=== PATIENT | female | born 1960 | race Caucasian/White ===

== ENCOUNTER 2017-12-02 09:59 | Emergency (ER) | payer MEDICAID ==
[2017-12-02 10:49] LABS: APPEARANCE,URINE Clear (CLEAR); BILIRUBIN,URINE Negative (NEGATIVE); COLOR,URINE Yellow (YELLOW); GLUCOSE, URINE (UA) >=1000 mg/dL (NEGATIVE); KETONES,URINE Trace mg/dL (NEGATIVE); LEUKOCYTE ESTERASE ,URINE Negative (NEGATIVE); NITRATE,URINE Negative (NEGATIVE); OCCULT BLOOD,URINE Large (NEGATIVE); PH,URINE 5.5 (5.0-8.0); PROTEIN,URINE POS 2+ (NEGATIVE)
[2017-12-02 10:52] LABS: HEMATOCRIT 33.9 % (36-48); MEAN CORPUSCULAR HEMOGLOBIN 33.7 pg (27.0-33.0); MEAN CORPUSCULAR HGB CONC 36.2 g/dL (32.0-36.0); PLATELET COUNT (AUTO) 73 K/uL (130-400); RED BLOOD CELL COUNT(AUTO) 3.64 MIL/uL (4.00-5.50); RED CELL DISTRIBUTION WIDTH 14.5 % (11.0-15.5); WHITE BLOOD COUNT (AUTO) 4.7 K/uL (4.8-10.8)
[2017-12-02 11:03] LABS: ALBUMIN 2.3 g/dL (3.5-5.0); BILIRUBIN,TOTAL 2.2 mg/dL (0.2-1.0); CREATININE 0.8 mg/dL (0.5-1.5); POTASSIUM 4.7 mmol/L (3.5-5.1); TOTAL PROTEIN, SERUM 6.3 g/dL (6.0-8.3)
[2017-12-02 11:08] LABS: BACTERIA,URINE Few /HPF (None Seen); SQUAMOUS EPITHELIAL CELL,UR Few /LPF (0-2); WBC,URINE 0-1 /HPF (0-1)
[2017-12-02 11:09] LABS: YEAST,URINE BUDDING Moderate /HPF (None Seen)
[2017-12-02 11:17] LABS: BASOPHILS % (MANUAL) 1 % (0-2); EOSINOPHILS % (MANUAL) 1 % (1-6); LYMPHOCYTES % (MANUAL) 13 % (22-44); MONOCYTES % (MANUAL) 13 % (2-9); SEGMENTED NEUTROPHILS % 72 % (40-70)
[2017-12-02] MEDS ORDERED: AZITHROMYCIN 250 MG TABLET PO ONE (11:18)
[2017-12-02] MEDS ORDERED: CEFTRIAXONE SODIUM 1 GM ONE (11:18)
[2017-12-02 11:19] LABS: MAN.DIFF COMMENT-IMPRESSION MANUAL DIFFERENTIAL; PLATELET MORPHOLOGY COMMENT DECREASED
[2017-12-02] MEDS ORDERED: INSULIN HUMULIN R 100 UNIT/ML 3ML ONE (11:19)
[2017-12-02 11:30] LABS: INR 1.01 (0.85-1.15); PARTIAL THROMBOPLASTIN TIME 25.2 SEC (26.3-35.5); PROTHROMBIN TIME 10.6 SEC (9.6-11.6)
[2017-12-02] MEDS ORDERED: SODIUM CHLORIDE 0.9% 500ML 500 ML IV ONE (11:39)
== END 2017-12-02 14:42 | disposition home or self-care (01) ==
LOC: EDH 09:59
DX: J18.9 Pneumonia, unspecified organism (principal); E11.65 Type 2 diabetes mellitus with hyperglycemia; K74.69 Other cirrhosis of liver; N93.9 Abnormal uterine and vaginal bleeding, unspecified; E78.5 Hyperlipidemia, unspecified; I10 Essential (primary) hypertension; Z88.0 Allergy status to penicillin; Z88.6 Allergy status to analgesic agent
CPT/HCPCS: 36415; 71045; 80053; 81001; 82948; 85025; 85610; 85730; 87804 ×2; 96361; 96374; 96375; 99285; J0696; J1815; J7040

== ENCOUNTER 2018-01-02 01:25 | Emergency (ER) | payer MEDICAID ==
[2018-01-02 02:55] LABS: BASOPHILS % (AUTO) 0.5 % (0.0-5.0); EOSINOPHILS % (AUTO) 3.1 % (0.0-8.0); HEMATOCRIT 28.7 % (36-48); LYMPHOCYTES % (AUTO) 16.8 % (21.0-51.0); MEAN CORPUSCULAR HEMOGLOBIN 33.4 pg (27.0-33.0); MEAN CORPUSCULAR HGB CONC 36.3 g/dL (32.0-36.0); MEAN CORPUSCULAR VOLUME 91.9 fL (79-99); MONOCYTES % (AUTO) 13.8 % (3.0-13.0); NEUTROPHILS % (AUTO) 65.8 % (40.0-77.0); PLATELET COUNT (AUTO) 73 K/uL (130-400); RED BLOOD CELL COUNT(AUTO) 3.12 MIL/uL (4.00-5.50); RED CELL DISTRIBUTION WIDTH 15.3 % (11.0-15.5)
[2018-01-02 03:05] LABS: BILIRUBIN,TOTAL 1.8 mg/dL (0.2-1.0); CREATININE 0.6 mg/dL (0.5-1.5); POTASSIUM 3.6 mmol/L (3.5-5.1); TOTAL PROTEIN, SERUM 5.8 g/dL (6.0-8.3)
[2018-01-02 03:25] LABS: BAND NEUTROPHILS % (MANUAL) 10 % (0-2); EOSINOPHILS % (MANUAL) 2 % (1-6); LYMPHOCYTES % (MANUAL) 16 % (22-44); MAN.DIFF COMMENT-IMPRESSION MANUAL DIFFERENTIAL; MONOCYTES % (MANUAL) 2 % (2-9); PLATELET MORPHOLOGY COMMENT DECREASED; SEGMENTED NEUTROPHILS % 70 % (40-70)
[2018-01-02 03:29] LABS: INR 1.05 (0.85-1.15); PARTIAL THROMBOPLASTIN TIME 28.2 SEC (26.3-35.5)
[2018-01-02] MEDS ORDERED: INSULIN HUMULIN R 100 UNIT/ML 3ML ONE (03:51)
== END 2018-01-02 05:30 | disposition home or self-care (01) ==
LOC: EDH 01:25
DX: N93.9 Abnormal uterine and vaginal bleeding, unspecified (principal); E11.65 Type 2 diabetes mellitus with hyperglycemia; D61.818 Other pancytopenia; K74.69 Other cirrhosis of liver; E78.5 Hyperlipidemia, unspecified; I10 Essential (primary) hypertension; Z88.6 Allergy status to analgesic agent; Z88.0 Allergy status to penicillin
CPT/HCPCS: 36415; 80053; 82948; 85007; 85025; 85610; 85730; 96374; 99284; J1815

== ENCOUNTER 2018-01-19 11:27 | Emergency (ER) | payer MEDICAID ==
[2018-01-19 12:22] LABS: BASOPHILS % (AUTO) 0.6 % (0.0-5.0); EOSINOPHILS % (AUTO) 1.5 % (0.0-8.0); HEMATOCRIT 30.8 % (36-48); LYMPHOCYTES % (AUTO) 14.7 % (21.0-51.0); MEAN CORPUSCULAR HEMOGLOBIN 32.4 pg (27.0-33.0); MEAN CORPUSCULAR HGB CONC 35.3 g/dL (32.0-36.0); MONOCYTES % (AUTO) 26.6 % (3.0-13.0); NEUTROPHILS % (AUTO) 56.6 % (40.0-77.0); NUCLEATED RED BLOOD CELLS 0.1 % (0.0-0.19); PLATELET COUNT (AUTO) 60 K/uL (130-400); RED BLOOD CELL COUNT(AUTO) 3.35 MIL/uL (4.00-5.50); RED CELL DISTRIBUTION WIDTH 14.5 % (11.0-15.5); WHITE BLOOD COUNT (AUTO) 1.5 K/uL (4.8-10.8)
[2018-01-19 12:31] LABS: ALBUMIN 2.3 g/dL (3.5-5.0); BILIRUBIN,TOTAL 1.5 mg/dL (0.2-1.0); CREATININE 0.7 mg/dL (0.5-1.5); POTASSIUM 4.3 mmol/L (3.5-5.1); TOTAL PROTEIN, SERUM 6.5 g/dL (6.0-8.3)
[2018-01-19] MEDS ORDERED: IPRATROPIUM/ALBUTEROL SULFATE 3 ML SOLUTION IH ONE (12:32)
[2018-01-19 14:17] LABS: APPEARANCE,URINE Clear (CLEAR); BILIRUBIN,URINE Negative (NEGATIVE); COLOR,URINE Yellow (YELLOW); GLUCOSE, URINE (UA) >=1000 mg/dL (NEGATIVE); KETONES,URINE Negative (NEGATIVE); LEUKOCYTE ESTERASE ,URINE Negative (NEGATIVE); NITRATE,URINE Negative (NEGATIVE); OCCULT BLOOD,URINE Large (NEGATIVE); PH,URINE 6.5 (5.0-8.0); PROTEIN,URINE POS 1+ (NEGATIVE)
[2018-01-19 14:33] LABS: BACTERIA,URINE Rare /HPF (None Seen); WBC,URINE 0-1 /HPF (0-1)
[2018-01-19] MEDS ORDERED: INSULIN HUMULIN R 100 UNIT/ML 3ML ONE (14:42)
[2018-01-19] MEDS ORDERED: SODIUM CHLORIDE 0.9% 500ML 500 ML IV ONE (14:43)
[2018-01-19] MEDS ORDERED: OSELTAMIVIR PHOSPHATE 75 MG CAP ONE (15:51)
== END 2018-01-19 16:45 | disposition home or self-care (01) ==
LOC: EDH 11:27
DX: E11.65 Type 2 diabetes mellitus with hyperglycemia (principal); J10.1 Influenza due to other identified influenza virus with other respiratory manifestations; D72.819 Decreased white blood cell count, unspecified; D69.6 Thrombocytopenia, unspecified; K74.69 Other cirrhosis of liver; E78.5 Hyperlipidemia, unspecified; I10 Essential (primary) hypertension; Z88.0 Allergy status to penicillin; Z88.6 Allergy status to analgesic agent; Z87.891 Personal history of nicotine dependence
CPT/HCPCS: 36415; 71046; 80053; 81001; 82140; 82948; 83605 ×2; 84484; 85025; 85060; 87804 ×2; 88313; 93005; 94640; 96374; 99285; J1815; J7040

== ENCOUNTER → 2018-05-02 | Outpatient (CLI) | payer MEDICAID | END | disposition home or self-care (01) | LOC: RAH 07:37 | PROVIDERS: ATTEND Internal Medicine Gastroenterology | DX: K74.60 Unspecified cirrhosis of liver (principal); R18.8 Other ascites; R16.1 Splenomegaly, not elsewhere classified; N28.1 Cyst of kidney, acquired; I10 Essential (primary) hypertension; E11.9 Type 2 diabetes mellitus without complications; E78.5 Hyperlipidemia, unspecified | CPT/HCPCS: 76700; 93975 ==

== ENCOUNTER 2018-07-26 17:17 | Inpatient (IN) | payer MEDICAID ==
[~2018-07-26] VITALS: Ht 154.9 cm; Wt 80.5 kg
[~2018-07-26 17:17] MED LIST: INSLAN SQ
[2018-07-26 18:54] LABS: BASOPHILS % (AUTO) 0.5 % (0.0-5.0); EOSINOPHILS % (AUTO) 2.7 % (0.0-8.0); LYMPHOCYTES % (AUTO) 13.8 % (21.0-51.0); MEAN CORPUSCULAR HEMOGLOBIN 31.9 pg (27.0-33.0); MONOCYTES % (AUTO) 12.4 % (3.0-13.0); NEUTROPHILS % (AUTO) 70.6 % (40.0-77.0); PLATELET COUNT (AUTO) 65 K/uL (130-400); RED BLOOD CELL COUNT(AUTO) 2.75 MIL/uL (4.00-5.50); WHITE BLOOD COUNT (AUTO) 2.5 K/uL (4.8-10.8)
[2018-07-26 19:02] LABS: APPEARANCE,URINE Clear (CLEAR); BILIRUBIN,URINE Negative (NEGATIVE); COLOR,URINE Yellow (YELLOW); GLUCOSE, URINE (UA) >=1000 mg/dL (NEGATIVE); KETONES,URINE Negative (NEGATIVE); LEUKOCYTE ESTERASE ,URINE Small (NEGATIVE); NITRATE,URINE Positive (NEGATIVE); OCCULT BLOOD,URINE Large (NEGATIVE); PH,URINE 6.5 (5.0-8.0); PROTEIN,URINE 300 (NEGATIVE)
[2018-07-26 19:09] LABS: INR 1.09 (0.85-1.15); PARTIAL THROMBOPLASTIN TIME 29.9 SEC (26.3-35.5); PROTHROMBIN TIME 11.4 SEC (9.6-11.6)
[2018-07-26 19:22] LABS: CREATINE KINASE MB 1.1 ng/mL (0.5-3.6)
[2018-07-26 19:29] LABS: BACTERIA,URINE Rare /HPF (None Seen); SQUAMOUS EPITHELIAL CELL,UR Few /HPF (0-2)
[2018-07-26 20:10] LABS: BAND NEUTROPHILS % (MANUAL) 5 % (0-2); EOSINOPHILS % (MANUAL) 1 % (1-6); LYMPHOCYTES % (MANUAL) 19 % (22-44); MAN.DIFF COMMENT-IMPRESSION MANUAL DIFFERENTIAL; MONOCYTES % (MANUAL) 4 % (2-9); REACTIVE LYMPHOCYTES 3 % (0-0); SEGMENTED NEUTROPHILS % 68 % (40-70)
[2018-07-26 20:11] LABS: PLATELET MORPHOLOGY COMMENT DECREASED
[2018-07-26 20:13] LABS: BILIRUBIN,TOTAL 1.6 mg/dL (0.2-1.0); POTASSIUM 3.8 mmol/L (3.5-5.1)
[2018-07-26] MEDS ORDERED: SODIUM CHLORIDE 0.9% 500ML 500 ML IV ONE (20:55)
[2018-07-26] MEDS ORDERED: INSULIN HUMULIN R 100 UNIT/ML 3ML ONE (20:55)
[2018-07-26] MEDS ORDERED: LEVOFLOXACIN 500 MG/D5W 100 ML 100 ML ONE (21:18)
[2018-07-26] MEDS ORDERED: ONDANSETRON HCL 4 MG/2 ML VIAL ONE (22:00)
[2018-07-26] MEDS ORDERED: HYDROMORPHONE HCL 0.5 MG/0.5 ML ML ONE (22:00)
[2018-07-26] MEDS ORDERED: DEXTROSE 50%-WATER 50 ML DISP.SYRIN IV PRN (22:15)
[2018-07-26] MEDS ORDERED: ONDANSETRON HCL 4 MG/2 ML VIAL IVP PRN (22:15)
[2018-07-26] MEDS ORDERED: GLUCAGON 1MG KIT 1 MG ML IM PRN (22:15)
[2018-07-26] MEDS: SODIUM CHLORIDE 0.9% 1000ML 1,000 ML IV SCH (22:15)
[2018-07-26] MEDS ORDERED: CLINDAMYCIN 600 MG/D5% WATER 50 ML IV ONE (22:52)
[2018-07-26 23:20] VITALS: BP 157/73
[2018-07-27] VITALS (15 sets, daily range): BP systolic 131–177; BP diastolic 57–77
[2018-07-27 05:31] LABS: HEMATOCRIT 23.6 % (36-48); MEAN CORPUSCULAR HEMOGLOBIN 31.4 pg (27.0-33.0); MEAN CORPUSCULAR HGB CONC 34.8 g/dL (32.0-36.0); MEAN CORPUSCULAR VOLUME 90.3 fL (79-99); PLATELET COUNT (AUTO) 53 K/uL (130-400); RED BLOOD CELL COUNT(AUTO) 2.62 MIL/uL (4.00-5.50); RED CELL DISTRIBUTION WIDTH 14.9 % (11.0-15.5); WHITE BLOOD COUNT (AUTO) 2.7 K/uL (4.8-10.8)
[2018-07-27 05:43] LABS: ALBUMIN 1.7 g/dL (3.5-5.0); BILIRUBIN,TOTAL 1.2 mg/dL (0.2-1.0); CREATININE 0.8 mg/dL (0.5-1.5); MAGNESIUM 1.6 mg/dL (1.80-2.40); PHOSPHORUS 3.5 mg/dL (2.5-4.9); POTASSIUM 4.3 mmol/L (3.5-5.1); TOTAL PROTEIN, SERUM 5.2 g/dL (6.0-8.3)
[2018-07-27] MEDS: INSULIN R PO SS1 SQ SCH ×4 (05:55→21:05)
[2018-07-27] MEDS: SODIUM CHLORIDE 0.9% 1000ML 1,000 ML IV SCH ×2 (08:15→18:15)
[2018-07-27] MEDS ORDERED: LIDOCAINE HCL MPF 1% 5ML VIAL ONE (08:32)
[2018-07-27] MEDS: PANTOPRAZOLE SODIUM 40 MG TABLET.DR PO SCH (09:20)
[2018-07-27] MEDS: LEVOFLOXACIN 500 MG/D5W 100 ML 100 ML IV SCH (09:20)
[2018-07-27] MEDS: CLINDAMYCIN 600 MG/D5% WATER 50 ML IV SCH ×2 (09:20→21:05)
[2018-07-27 13:40] LABS: APPEARANCE BODY FLUID SLIGHTLY CLOUDY (CLEAR); COLOR,BODY FLUID LT YELLOW (LT YELLOW); SPECIMENTYPE,BODY FLUID ASCITES; TOTAL VOLUME,BODY FLUID 2000 mL
[2018-07-27 14:04] LABS: BODY FLUID WBC 108 /cu. mm.
[2018-07-27 14:05] LABS: BODY FLUID RBC 175 /cu. mm.
[2018-07-27 14:41] LABS: BF BLAST 2 %; BF LYMPHOCYTE 11 %; BF MESOTHELIAL 6 %; BF MONOCYTE 24 %; BF OTHER CELLS 36
[2018-07-27] MEDS: HYDROMORPHONE HCL 0.5 MG/0.5 ML ML IVP PRN (15:52)
[2018-07-28] VITALS (18 sets, daily range): BP systolic 112–174; BP diastolic 58–92
[2018-07-28] MEDS: SODIUM CHLORIDE 0.9% 1000ML 1,000 ML IV SCH ×3 (03:24→23:31)
[2018-07-28 04:48] LABS: HEMATOCRIT 24.6 % (36-48); MEAN CORPUSCULAR HEMOGLOBIN 32.5 pg (27.0-33.0); MEAN CORPUSCULAR HGB CONC 35.8 g/dL (32.0-36.0); MEAN CORPUSCULAR VOLUME 90.6 fL (79-99); NUCLEATED RED BLOOD CELLS 0.1 % (0.0-0.19); PLATELET COUNT (AUTO) 61 K/uL (130-400); RED BLOOD CELL COUNT(AUTO) 2.71 MIL/uL (4.00-5.50); RED CELL DISTRIBUTION WIDTH 15.1 % (11.0-15.5); WHITE BLOOD COUNT (AUTO) 2.1 K/uL (4.8-10.8)
[2018-07-28 05:08] LABS: ALBUMIN 1.7 g/dL (3.5-5.0); CREATININE 0.9 mg/dL (0.5-1.5); MAGNESIUM 1.5 mg/dL (1.80-2.40); PHOSPHORUS 3.8 mg/dL (2.5-4.9); POTASSIUM 4.5 mmol/L (3.5-5.1); TOTAL PROTEIN, SERUM 5.4 g/dL (6.0-8.3)
[2018-07-28 05:42] LABS: BAND NEUTROPHILS % (MANUAL) 2 % (0-2); BASOPHILS % (MANUAL) 1 % (0-2); EOSINOPHILS % (MANUAL) 6 % (1-6); LYMPHOCYTES % (MANUAL) 22 % (22-44); MAN.DIFF COMMENT-IMPRESSION MANUAL DIFFERENTIAL; MONOCYTES % (MANUAL) 8 % (2-9); SEGMENTED NEUTROPHILS % 61 % (40-70)
[2018-07-28 05:43] LABS: PLATELET MORPHOLOGY COMMENT DECREASED
[2018-07-28] MEDS: INSULIN R PO SS1 SQ SCH ×4 (06:06→20:26)
[2018-07-28] MEDS ORDERED: MAGNESIUM 4GM PREMIX 100ML 100 ML IV SCH (07:15)
[2018-07-28] MEDS ORDERED: PROPOFOL 10 MG/ML 20ML VIAL IV ONE (07:26)
[2018-07-28] MEDS: CLINDAMYCIN 600 MG/D5% WATER 50 ML IV SCH ×2 (10:10→20:25)
[2018-07-28] MEDS: PANTOPRAZOLE SODIUM 40 MG TABLET.DR PO SCH (10:10)
[2018-07-28] MEDS: LEVOFLOXACIN 500 MG/D5W 100 ML 100 ML IV SCH (10:10)
[2018-07-28] MEDS ORDERED: HYDROMORPHONE 1 MG/1 ML AMP ONE (18:48)
[2018-07-28] MEDS: HYDROMORPHONE HCL 0.5 MG/0.5 ML ML IVP PRN (18:53)
[2018-07-29 02:53] VITALS: BP 142/76
[2018-07-29 05:34] LABS: HEMATOCRIT 23.1 % (36-48); MEAN CORPUSCULAR HEMOGLOBIN 31.8 pg (27.0-33.0); MEAN CORPUSCULAR HGB CONC 34.9 g/dL (32.0-36.0); MEAN CORPUSCULAR VOLUME 91.1 fL (79-99); NUCLEATED RED BLOOD CELLS 0.1 % (0.0-0.19); PLATELET COUNT (AUTO) 57 K/uL (130-400); RED BLOOD CELL COUNT(AUTO) 2.53 MIL/uL (4.00-5.50); RED CELL DISTRIBUTION WIDTH 14.8 % (11.0-15.5); WHITE BLOOD COUNT (AUTO) 2.7 K/uL (4.8-10.8)
[2018-07-29 05:47] LABS: ALBUMIN 1.6 g/dL (3.5-5.0); BILIRUBIN,TOTAL 0.9 mg/dL (0.2-1.0); CREATININE 0.9 mg/dL (0.5-1.5); MAGNESIUM 2.2 mg/dL (1.80-2.40); PHOSPHORUS 3.6 mg/dL (2.5-4.9); POTASSIUM 4.2 mmol/L (3.5-5.1); TOTAL PROTEIN, SERUM 5.2 g/dL (6.0-8.3)
[2018-07-29] MEDS: INSULIN R PO SS1 SQ SCH (06:12)
[2018-07-29 07:41] VITALS: BP 136/60
== END 2018-07-29 11:05 | disposition home or self-care (01) ==
LOC: EDH 17:17 → EDHIP 17:18 → 3AH 22:57
PROVIDERS: ADMIT Family Medicine; ATTEND Family Medicine
PROC: 0W9G3ZZ Drainage of Peritoneal Cavity, Percutaneous Approach (ICD-10-PCS; 2018-07-27)
PROC: 0DJ08ZZ Inspection of Upper Intestinal Tract, Via Natural or Artificial Opening Endoscopic (ICD-10-PCS; principal; 2018-07-28)
DX: K74.60 Unspecified cirrhosis of liver (principal); K85.90 Acute pancreatitis without necrosis or infection, unspecified; D69.6 Thrombocytopenia, unspecified; R18.8 Other ascites; E11.9 Type 2 diabetes mellitus without complications; D64.9 Anemia, unspecified; E78.5 Hyperlipidemia, unspecified; I10 Essential (primary) hypertension; K29.50 Unspecified chronic gastritis without bleeding; Z86.14 Personal history of Methicillin resistant Staphylococcus aureus infection; Z79.899 Other long term (current) drug therapy; Z91.11 Patient's noncompliance with dietary regimen; Z91.14 Patient's other noncompliance with medication regimen; Z88.0 Allergy status to penicillin; Z88.8 Allergy status to other drugs, medicaments and biological substances
CPT/HCPCS: 36415; 43235; 49083; 74176; 80053; 81001; 82150; 82550; 82553; 82948; 83690; 83735; 83880; 84100; 84484; 85025; 85027; 85610; 85730; 87040; 87071; 87088; 87186; 87205; 88108; 88305; 89051; 93005; C9113; J1170; J1815; J1956; J2405; J2704; J3475; J3490; J7040

== ENCOUNTER 2018-08-20 16:31 | Observation (INO) | payer MEDICAID ==
[~2018-08-20] VITALS: Ht 154.9 cm; Wt 83.0 kg
[2018-08-20 17:00] LABS: BASOPHILS % (AUTO) 0.3 % (0.0-5.0); EOSINOPHILS % (AUTO) 3.1 % (0.0-8.0); HEMATOCRIT 22.8 % (36-48); LYMPHOCYTES % (AUTO) 15.5 % (21.0-51.0); MEAN CORPUSCULAR HEMOGLOBIN 31.9 pg (27.0-33.0); MEAN CORPUSCULAR HGB CONC 35.2 g/dL (32.0-36.0); MEAN CORPUSCULAR VOLUME 90.6 fL (79-99); MONOCYTES % (AUTO) 13.4 % (3.0-13.0); NEUTROPHILS % (AUTO) 67.7 % (40.0-77.0); NUCLEATED RED BLOOD CELLS 0.1 % (0.0-0.19); PLATELET COUNT (AUTO) 67 K/uL (130-400); RED BLOOD CELL COUNT(AUTO) 2.52 MIL/uL (4.00-5.50); RED CELL DISTRIBUTION WIDTH 16.2 % (11.0-15.5); WHITE BLOOD COUNT (AUTO) 2.1 K/uL (4.8-10.8)
[2018-08-20 17:13] LABS: CREATININE 0.9 mg/dL (0.5-1.5); POTASSIUM 3.9 mmol/L (3.5-5.1)
[2018-08-20 17:15] LABS: INR 1.07 (0.85-1.15); PARTIAL THROMBOPLASTIN TIME 25.4 SEC (26.3-35.5); PROTHROMBIN TIME 11.2 SEC (9.6-11.6)
[2018-08-20 17:18] LABS: ALBUMIN 1.7 g/dL (3.5-5.0); BILIRUBIN,TOTAL 0.8 mg/dL (0.2-1.0); TOTAL PROTEIN, SERUM 5.4 g/dL (6.0-8.3)
[2018-08-20 18:03] LABS: EOSINOPHILS % (MANUAL) 3 % (1-6); LYMPHOCYTES % (MANUAL) 20 % (22-44); MAN.DIFF COMMENT-IMPRESSION MANUAL DIFFERENTIAL; MONOCYTES % (MANUAL) 6 % (2-9); REACTIVE LYMPHOCYTES 2 % (0-0); SEGMENTED NEUTROPHILS % 69 % (40-70)
[2018-08-20 18:04] LABS: PLATELET MORPHOLOGY COMMENT DECREASED
[2018-08-20] MEDS ORDERED: INSULIN HUMULIN R 100 UNIT/ML 3ML ONE (18:25)
[2018-08-20] MEDS ORDERED: HYDROMORPHONE 1 MG/1 ML AMP ONE (19:19)
[2018-08-20] MEDS ORDERED: IOHEXOL-350 75 ML VIAL IV ONE (23:01)
[2018-08-21 01:50] VITALS: BP 145/73
[2018-08-21] MEDS ORDERED: HYDROMORPHONE 1 MG/1 ML AMP ONE ×3 (03:04→23:01)
[2018-08-21 04:00] VITALS: BP 137/67
[2018-08-21] MEDS: INSULIN HUMULIN R 100 UNIT/ML 3ML SQ SCH ×4 (07:30→21:29)
[2018-08-21 08:00] VITALS: BP 150/81
[2018-08-21] MEDS: INSULIN GLARGINE 100 UNITS/ML 10 ML VIAL SQ SCH ×2 (09:50→21:28)
[2018-08-21 11:00] VITALS: BP 171/76
[2018-08-21] MEDS ORDERED: ONDANSETRON HCL MDV 20ML 2 MG/ML VIAL IVP PRN (13:00)
[2018-08-21] MEDS: HYDROMORPHONE HCL 0.5 MG/0.5 ML ML IVP PRN (15:59)
[2018-08-21 16:00] VITALS: BP 169/76
[2018-08-21 20:00] VITALS: BP 145/63
[2018-08-21] MEDS ORDERED: LEVOFLOXACIN 750 MG TABLET PO SCH (21:00)
[2018-08-21] MEDS: DOXYCYCLINE HYCLATE 100 MG TABLET PO SCH (21:23)
[2018-08-21] MEDS: IPRATROPIUM 0.5 MG/2.5 ML INH IH SCH (23:09)
[2018-08-22] VITALS: BP 164/77
[2018-08-22 04:00] VITALS: BP 128/55
[2018-08-22 04:16] LABS: HEMATOCRIT 25.3 % (36-48); MEAN CORPUSCULAR HGB CONC 35.2 g/dL (32.0-36.0); PLATELET COUNT (AUTO) 73 K/uL (130-400); RED BLOOD CELL COUNT(AUTO) 2.78 MIL/uL (4.00-5.50); RED CELL DISTRIBUTION WIDTH 16.2 % (11.0-15.5); WHITE BLOOD COUNT (AUTO) 2.7 K/uL (4.8-10.8)
[2018-08-22 04:29] LABS: INR 1.05 (0.85-1.15); PARTIAL THROMBOPLASTIN TIME 28.4 SEC (26.3-35.5)
[2018-08-22 04:31] LABS: ALBUMIN 1.5 g/dL (3.5-5.0); BILIRUBIN,TOTAL 0.9 mg/dL (0.2-1.0); CREATININE 0.7 mg/dL (0.5-1.5); MAGNESIUM 1.6 mg/dL (1.80-2.40); PHOSPHORUS 3.5 mg/dL (2.5-4.9); POTASSIUM 3.9 mmol/L (3.5-5.1); TOTAL PROTEIN, SERUM 5.2 g/dL (6.0-8.3)
[2018-08-22] MEDS: INSULIN HUMULIN R 100 UNIT/ML 3ML SQ SCH ×3 (06:17→15:42)
[2018-08-22] MEDS ORDERED: HYDROMORPHONE 1 MG/1 ML AMP ONE ×2 (06:27→15:27)
[2018-08-22] MEDS ORDERED: MAGNESIUM 4GM PREMIX 100ML 100 ML IV SCH (06:30)
[2018-08-22] MEDS: IPRATROPIUM 0.5 MG/2.5 ML INH IH SCH ×2 (06:32→10:54)
[2018-08-22] MEDS: INSULIN GLARGINE 100 UNITS/ML 10 ML VIAL SQ SCH (06:33)
[2018-08-22 08:00] VITALS: BP 123/63
[2018-08-22] MEDS: DOXYCYCLINE HYCLATE 100 MG TABLET PO SCH (10:21)
[2018-08-22 11:00] VITALS: BP 149/76
[2018-08-22] MEDS: HYDROMORPHONE HCL 0.5 MG/0.5 ML ML IVP PRN (15:36)
[2018-08-22 16:00] VITALS: BP 162/73
== END 2018-08-22 18:15 | disposition home or self-care (01) ==
LOC: EDH 16:31 → EDHIP 16:32 → 4CH 08-21 01:10
PROVIDERS: ADMIT Family Medicine; ATTEND Family Medicine
DX: D61.818 Other pancytopenia (principal); J11.1 Influenza due to unidentified influenza virus with other respiratory manifestations; R91.1 Solitary pulmonary nodule; E11.65 Type 2 diabetes mellitus with hyperglycemia; K74.60 Unspecified cirrhosis of liver; R18.8 Other ascites; I10 Essential (primary) hypertension; D68.9 Coagulation defect, unspecified; E78.5 Hyperlipidemia, unspecified; E83.52 Hypercalcemia; Z86.14 Personal history of Methicillin resistant Staphylococcus aureus infection; Z87.891 Personal history of nicotine dependence; Z91.11 Patient's noncompliance with dietary regimen; Z91.14 Patient's other noncompliance with medication regimen; Z88.0 Allergy status to penicillin
CPT/HCPCS: 36415 ×2; 71250; 71275; 74176; 76705; 80053 ×2; 82948 ×8; 83735; 84100; 85025; 85027; 85378; 85610 ×2; 85730 ×2; 93005; 93970; 94640 ×3; 94664; 96365; 96366; 96372 ×2; 96375; 96376; 99291; G0378 ×50; J1170 ×6; J1815 ×5; J3475; Q9967

== ENCOUNTER 2018-09-10 18:09 | Emergency (ER) | payer MEDICAID ==
[2018-09-10 18:40] LABS: BASOPHILS % (AUTO) 0.2 % (0.0-5.0); EOSINOPHILS % (AUTO) 0.6 % (0.0-8.0); HEMATOCRIT 24.9 % (36-48); LYMPHOCYTES % (AUTO) 4.6 % (21.0-51.0); MEAN CORPUSCULAR HGB CONC 34.6 g/dL (32.0-36.0); MEAN CORPUSCULAR VOLUME 89.6 fL (79-99); MONOCYTES % (AUTO) 9.7 % (3.0-13.0); NEUTROPHILS % (AUTO) 84.9 % (40.0-77.0); PLATELET COUNT (AUTO) 54 K/uL (130-400); RED BLOOD CELL COUNT(AUTO) 2.78 MIL/uL (4.00-5.50); RED CELL DISTRIBUTION WIDTH 15.6 % (11.0-15.5)
[2018-09-10 18:56] LABS: CREATININE 0.9 mg/dL (0.5-1.5); POTASSIUM 3.1 mmol/L (3.5-5.1)
[2018-09-10 18:59] LABS: INR 1.08 (0.85-1.15); PARTIAL THROMBOPLASTIN TIME 30.7 SEC (26.3-35.5); PROTHROMBIN TIME 11.3 SEC (9.6-11.6)
[2018-09-10 19:21] LABS: PLATELET MORPHOLOGY COMMENT DECREASED
[2018-09-10 19:26] LABS: BILIRUBIN,TOTAL 2.7 mg/dL (0.2-1.0); TOTAL PROTEIN, SERUM 6.1 g/dL (6.0-8.3); TROPONIN I 0.05 ng/mL (0.00-0.06)
[2018-09-10 20:50] LABS: APPEARANCE,URINE Clear (CLEAR); BILIRUBIN,URINE Negative (NEGATIVE); COLOR,URINE Yellow (YELLOW); GLUCOSE, URINE (UA) >=1000 mg/dL (NEGATIVE); KETONES,URINE Trace mg/dL (NEGATIVE); LEUKOCYTE ESTERASE ,URINE Negative (NEGATIVE); NITRATE,URINE Negative (NEGATIVE); OCCULT BLOOD,URINE Large (NEGATIVE); PROTEIN,URINE 300 (NEGATIVE)
[2018-09-10] MEDS ORDERED: LEVOFLOXACIN 500 MG TABLET ONE (20:59)
[2018-09-10] MEDS ORDERED: CEFTRIAXONE SODIUM 1 GM ONE (20:59)
[2018-09-10] MEDS ORDERED: SODIUM CHLORIDE 0.9% 50 ML IV ONE (21:00)
[2018-09-10 21:06] LABS: BACTERIA,URINE Few /HPF (None Seen); SQUAMOUS EPITHELIAL CELL,UR Few /HPF (0-2); WBC,URINE 0-1 /HPF (0-1)
[2018-09-10 21:07] LABS: HYALINE CASTS, URINE 0-1 /LPF (0-1 /LPF)
== END 2018-09-10 21:53 | disposition home or self-care (01) ==
LOC: EDH 18:09
DX: K70.30 Alcoholic cirrhosis of liver without ascites (principal); R91.8 Other nonspecific abnormal finding of lung field; E11.9 Type 2 diabetes mellitus without complications; E78.5 Hyperlipidemia, unspecified; Z88.0 Allergy status to penicillin; Z88.6 Allergy status to analgesic agent; Z87.891 Personal history of nicotine dependence
CPT/HCPCS: 36415; 71045; 80053; 81001; 82550; 83605 ×2; 83874; 84484; 85025; 85610; 85730; 87040 ×2; 87088; 87804 ×2; 93005; 96374; 99285; J0696

== ENCOUNTER 2018-09-26 16:18 | Emergency (ER) | payer MEDICAID ==
[2018-09-26 17:14] LABS: BASOPHILS % (AUTO) 0.5 % (0.0-5.0); EOSINOPHILS % (AUTO) 2.6 % (0.0-8.0); LYMPHOCYTES % (AUTO) 16.8 % (21.0-51.0); MEAN CORPUSCULAR HEMOGLOBIN 31.1 pg (27.0-33.0); MEAN CORPUSCULAR HGB CONC 34.6 g/dL (32.0-36.0); MEAN CORPUSCULAR VOLUME 89.8 fL (79-99); MONOCYTES % (AUTO) 16.4 % (3.0-13.0); NEUTROPHILS % (AUTO) 63.7 % (40.0-77.0); PLATELET COUNT (AUTO) 71 K/uL (130-400); RED BLOOD CELL COUNT(AUTO) 2.67 MIL/uL (4.00-5.50); RED CELL DISTRIBUTION WIDTH 15.7 % (11.0-15.5)
[2018-09-26 17:26] LABS: CREATININE 0.9 mg/dL (0.5-1.5)
[2018-09-26 17:29] LABS: INR 1.05 (0.85-1.15); PARTIAL THROMBOPLASTIN TIME 29.7 SEC (26.3-35.5)
[2018-09-26 17:31] LABS: ALBUMIN 1.9 g/dL (3.5-5.0); BILIRUBIN,TOTAL 1.1 mg/dL (0.2-1.0)
[2018-09-26 18:06] LABS: BAND NEUTROPHILS % (MANUAL) 1 % (0-2); BASOPHILS % (MANUAL) 1 % (0-2); EOSINOPHILS % (MANUAL) 6 % (1-6); LYMPHOCYTES % (MANUAL) 10 % (22-44); MAN.DIFF COMMENT-IMPRESSION MANUAL DIFFERENTIAL; MONOCYTES % (MANUAL) 12 % (2-9); SEGMENTED NEUTROPHILS % 70 % (40-70)
== END 2018-09-26 19:07 | disposition home or self-care (01) ==
LOC: EDH 16:18
DX: R18.8 Other ascites (principal); E78.5 Hyperlipidemia, unspecified; E11.9 Type 2 diabetes mellitus without complications; K74.60 Unspecified cirrhosis of liver; Z90.49 Acquired absence of other specified parts of digestive tract; Z90.710 Acquired absence of both cervix and uterus; Z98.890 Other specified postprocedural states; Z87.891 Personal history of nicotine dependence; Z88.0 Allergy status to penicillin; Z88.6 Allergy status to analgesic agent
CPT/HCPCS: 36415; 80053; 82140; 85025; 85610; 85730

== ENCOUNTER → 2018-09-28 | Outpatient (CLI) | payer MEDICAID ==
[~2018-09-28] MED LIST changes: +ALBUMIN (HUMAN) 25% 200 ML IV SCH; +LIDOCAINE HCL 1% 20 ML VIAL ONE
[2018-09-28 11:01] LABS: INR 1.01 (0.85-1.15); PROTHROMBIN TIME 10.6 SEC (9.6-11.6)
[2018-09-28 11:55] LABS: PARTIAL THROMBOPLASTIN TIME 20.5 SEC (26.3-35.5)
[2018-09-28 17:38] LABS: APPEARANCE BODY FLUID SLIGHTLY CLOUDY (CLEAR); COLOR,BODY FLUID LT YELLOW (LT YELLOW); SPECIMENTYPE,BODY FLUID ASCITES; TOTAL VOLUME,BODY FLUID 5000 mL
[2018-09-28 17:39] LABS: BODY FLUID RBC 69 /cu. mm.; BODY FLUID WBC 666 /cu. mm.
[2018-09-28 17:45] LABS: BF LYMPHOCYTE 4 %; BF MESOTHELIAL 87 %; BF MONOCYTE 2 %; BF OTHER CELLS 5
== END | disposition home or self-care (01) ==
LOC: RAH 10:17
PROVIDERS: ATTEND Family Medicine
DX: R18.8 Other ascites (principal)
CPT/HCPCS: 36415; 49083; 85610; 85730; 87071; 87205; 89051; 96365; A4215; P9046

== ENCOUNTER 2018-10-29 14:54 | Emergency (ER) | payer MEDICAID ==
[~2018-10-29 14:54] MED LIST changes: -ALBUMIN (HUMAN) 25% 200 ML IV SCH; -LIDOCAINE HCL 1% 20 ML VIAL ONE
[2018-10-29] MEDS ORDERED: HYDRALAZINE HCL 20 MG/ML VIAL ONE (15:35)
[2018-10-29 15:38] LABS: BASOPHILS % (AUTO) 0.4 % (0.0-5.0); EOSINOPHILS % (AUTO) 2.4 % (0.0-8.0); LYMPHOCYTES % (AUTO) 12.8 % (21.0-51.0); MEAN CORPUSCULAR HEMOGLOBIN 29.7 pg (27.0-33.0); MEAN CORPUSCULAR HGB CONC 32.8 g/dL (32.0-36.0); MEAN CORPUSCULAR VOLUME 90.5 fL (79-99); MONOCYTES % (AUTO) 14.3 % (3.0-13.0); NEUTROPHILS % (AUTO) 70.1 % (40.0-77.0); NUCLEATED RED BLOOD CELLS 0.1 % (0.0-0.19); PLATELET COUNT (AUTO) 64 K/uL (130-400); RED BLOOD CELL COUNT(AUTO) 2.87 MIL/uL (4.00-5.50); RED CELL DISTRIBUTION WIDTH 15.6 % (11.0-15.5); WHITE BLOOD COUNT (AUTO) 2.9 K/uL (4.8-10.8)
[2018-10-29 15:58] LABS: CREATININE 1.1 mg/dL (0.5-1.5); POTASSIUM 4.6 mmol/L (3.5-5.1)
[2018-10-29 16:00] LABS: INR 1.05 (0.85-1.15)
[2018-10-29 16:03] LABS: BILIRUBIN,TOTAL 1.4 mg/dL (0.2-1.0); TOTAL PROTEIN, SERUM 6.1 g/dL (6.0-8.3)
[2018-10-29 16:10] LABS: BAND NEUTROPHILS % (MANUAL) 1 % (0-2); BASOPHILS % (MANUAL) 1 % (0-2); EOSINOPHILS % (MANUAL) 2 % (1-6); LYMPHOCYTES % (MANUAL) 6 % (22-44); MAN.DIFF COMMENT-IMPRESSION MANUAL DIFFERENTIAL; MONOCYTES % (MANUAL) 8 % (2-9); REACTIVE LYMPHOCYTES 1 % (0-0); SEGMENTED NEUTROPHILS % 81 % (40-70)
== END 2018-10-29 16:56 | disposition home or self-care (01) ==
LOC: EDH 14:54
DX: R18.8 Other ascites (principal); E11.9 Type 2 diabetes mellitus without complications; E78.5 Hyperlipidemia, unspecified; Z90.710 Acquired absence of both cervix and uterus; Z90.49 Acquired absence of other specified parts of digestive tract; Z98.890 Other specified postprocedural states
CPT/HCPCS: 36415; 80053; 82140; 85025; 85610; 85730; 93005; 96374; 99284; J0360

== ENCOUNTER 2018-11-02 20:06 | Inpatient (IN) | payer MEDICAID ==
[~2018-11-02] VITALS: Ht 152.4 cm; Wt 81.8 kg
[2018-11-02] MEDS ORDERED: MORPHINE SULFATE 4 MG/1ML SYG ONE ×2 (20:32→21:27)
[2018-11-02] MEDS ORDERED: ONDANSETRON HCL 4 MG/2 ML VIAL ONE (20:32)
[2018-11-02 20:36] LABS: BASOPHILS % (AUTO) 0.4 % (0.0-5.0); EOSINOPHILS % (AUTO) 2.4 % (0.0-8.0); HEMATOCRIT 25.5 % (36-48); MEAN CORPUSCULAR HEMOGLOBIN 29.6 pg (27.0-33.0); MEAN CORPUSCULAR HGB CONC 33.6 g/dL (32.0-36.0); MEAN CORPUSCULAR VOLUME 88.2 fL (79-99); MONOCYTES % (AUTO) 14.5 % (3.0-13.0); NEUTROPHILS % (AUTO) 69.7 % (40.0-77.0); NUCLEATED RED BLOOD CELLS 0.2 % (0.0-0.19); PLATELET COUNT (AUTO) 50 K/uL (130-400); RED BLOOD CELL COUNT(AUTO) 2.89 MIL/uL (4.00-5.50); RED CELL DISTRIBUTION WIDTH 14.9 % (11.0-15.5); WHITE BLOOD COUNT (AUTO) 2.7 K/uL (4.8-10.8)
[2018-11-02 20:42] LABS: INR 1.11 (0.85-1.15); PARTIAL THROMBOPLASTIN TIME 26.1 SEC (26.3-35.5); PROTHROMBIN TIME 11.6 SEC (9.6-11.6)
[2018-11-02 20:46] LABS: BILIRUBIN,TOTAL 0.9 mg/dL (0.2-1.0); CREATININE 1.1 mg/dL (0.5-1.5); TOTAL PROTEIN, SERUM 6.1 g/dL (6.0-8.3)
[2018-11-02 20:49] LABS: B-TYPE NATRIURETIC PEPTIDE 229 pg/mL (0-100)
[2018-11-02] MEDS ORDERED: INSULIN HUMULIN R 100 UNIT/ML 3ML ONE (20:55)
[2018-11-02] MEDS ORDERED: LEVOFLOXACIN 750 MG/D5W 150 ML 150 ML ONE (21:04)
[2018-11-02 21:19] LABS: EOSINOPHILS % (MANUAL) 1 % (1-6); LYMPHOCYTES % (MANUAL) 16 % (22-44); MONOCYTES % (MANUAL) 15 % (2-9); PLATELET MORPHOLOGY COMMENT MARKED DECREASE; REACTIVE LYMPHOCYTES 1 % (0-0); SEGMENTED NEUTROPHILS % 67 % (40-70)
[2018-11-02] MEDS ORDERED: GLUCAGON 1MG KIT 1 MG ML IM PRN (21:45)
[2018-11-02] MEDS ORDERED: LEVOFLOXACIN 500 MG/D5W 100 ML 100 ML IV SCH (21:45)
[2018-11-02] MEDS ORDERED: VANCOMYCIN PROTOCOL PER PHARMACY IV SCH (21:45)
[2018-11-02] MEDS ORDERED: DEXTROSE 50%-WATER 50 ML DISP.SYRIN IV PRN (21:45)
[2018-11-02] MEDS ORDERED: PHARMACY COMMUNICATION MISC SCH ×2 (22:00→23:45)
[2018-11-02] MEDS ORDERED: IOHEXOL-350 75 ML VIAL IV ONE (22:06)
[2018-11-02 22:19] LABS: HEMOGLOBIN A1C 8.8 % (4.0-6.0)
[2018-11-03 01:19] VITALS: BP 158/71
[2018-11-03 01:25] LABS: APPEARANCE,URINE Clear (CLEAR); BILIRUBIN,URINE Negative (NEGATIVE); COLOR,URINE Yellow (YELLOW); GLUCOSE, URINE (UA) >=1000 mg/dL (NEGATIVE); KETONES,URINE Negative (NEGATIVE); LEUKOCYTE ESTERASE ,URINE Negative (NEGATIVE); NITRATE,URINE Negative (NEGATIVE); OCCULT BLOOD,URINE Large (NEGATIVE); PROTEIN,URINE POS 2+ (NEGATIVE); UROBILINOGEN,URINE 0.2 mg/dL (0.2-1.0)
[2018-11-03] MEDS ORDERED: MORPHINE SULFATE 2 MG/ML 1ML SYG IV PRN (01:30)
[2018-11-03] MEDS ORDERED: MORPHINE SULFATE 4 MG/1ML SYG IV PRN (01:30)
[2018-11-03] MEDS ORDERED: ONDANSETRON HCL 4 MG/2 ML VIAL IV PRN (01:30)
[2018-11-03 01:34] LABS: AMPHET/METH SCREEN,URINE NEGATIVE (NEGATIVE); BARBITURATE SCREEN, URINE NEGATIVE (NEGATIVE); BENZODIAZEPINES SCREEN,URINE NEGATIVE (NEGATIVE); CANNABINOID SCREEN,URINE NEGATIVE (NEGATIVE); COCAINE SCREEN,URINE NEGATIVE (NEGATIVE); OPIATE SCREEN,URINE POSITIVE (NEGATIVE); PHENCYCLIDINE SCREEN,URINE NEGATIVE (NEGATIVE)
[2018-11-03 01:43] LABS: BACTERIA,URINE Rare /HPF (None Seen); SQUAMOUS EPITHELIAL CELL,UR Few /HPF (0-2); WBC,URINE 0-1 /HPF (0-1); YEAST,URINE BUDDING Rare /HPF (None Seen)
[2018-11-03] MEDS ORDERED: VANCOMYCIN 1.5 GM in SODIUM CHLORIDE 0.9% 250 ML IV SCH (02:00)
[2018-11-03] MEDS ORDERED: VANCOMYCIN 1GM+NS 250ML 250 ML IV ONE ×2 (02:45)
[2018-11-03 04:00] VITALS: BP 137/61
[2018-11-03 04:11] LABS: BASOPHILS % (AUTO) 0.3 % (0.0-5.0); EOSINOPHILS % (AUTO) 2.1 % (0.0-8.0); HEMATOCRIT 25.7 % (36-48); LYMPHOCYTES % (AUTO) 9.5 % (21.0-51.0); MEAN CORPUSCULAR HGB CONC 35.3 g/dL (32.0-36.0); MEAN CORPUSCULAR VOLUME 87.8 fL (79-99); MONOCYTES % (AUTO) 13.8 % (3.0-13.0); NEUTROPHILS % (AUTO) 74.3 % (40.0-77.0); PLATELET COUNT (AUTO) 60 K/uL (130-400); RED BLOOD CELL COUNT(AUTO) 2.93 MIL/uL (4.00-5.50); RED CELL DISTRIBUTION WIDTH 14.6 % (11.0-15.5)
[2018-11-03 04:37] LABS: ALBUMIN 1.9 g/dL (3.5-5.0); BILIRUBIN,TOTAL 0.9 mg/dL (0.2-1.0); POTASSIUM 4.4 mmol/L (3.5-5.1); TOTAL PROTEIN, SERUM 5.9 g/dL (6.0-8.3)
[2018-11-03] MEDS: INSULIN HUMULIN R 100 UNIT/ML 3ML SQ SCH ×3 (06:24→12:00)
[2018-11-03] MEDS ORDERED: COMPOUND IV REFRIGERATED 1 EACH IVSOLN MISC PRN (06:45)
[2018-11-03 07:43] VITALS: BP 126/73
[2018-11-03] MEDS ORDERED: VANCOMYCIN 1.25 GM in SODIUM CHLORIDE 0.9% 250 ML IV SCH (09:00)
[2018-11-03] MEDS ORDERED: FAMOTIDINE/PF 20 MG/2 ML VIAL IV SCH (09:00)
[2018-11-03 12:27] VITALS: BP 120/70
== END 2018-11-03 13:15 | disposition left against medical advice (07) ==
LOC: EDH 20:06 → EDHIP 20:07 → 2AH 11-03 00:41
PROVIDERS: ADMIT Family Medicine; ATTEND Family Medicine
DX: K74.60 Unspecified cirrhosis of liver (principal); D61.818 Other pancytopenia; R18.8 Other ascites; E11.65 Type 2 diabetes mellitus with hyperglycemia; E78.5 Hyperlipidemia, unspecified; I10 Essential (primary) hypertension; Z53.21 Procedure and treatment not carried out due to patient leaving prior to being seen by health care provider; Z82.0 Family history of epilepsy and other diseases of the nervous system; Z82.49 Family history of ischemic heart disease and other diseases of the circulatory system; Z83.3 Family history of diabetes mellitus; Z86.14 Personal history of Methicillin resistant Staphylococcus aureus infection; Z88.6 Allergy status to analgesic agent; Z88.0 Allergy status to penicillin; Z88.8 Allergy status to other drugs, medicaments and biological substances; Z91.018 Allergy to other foods; Z79.84 Long term (current) use of oral hypoglycemic drugs
CPT/HCPCS: 36415; 74178; 80053; 80305; 81001; 82150; 82948; 83036; 83690; 83880; 84484; 85025; 85610; 85730; 87040; 87088; 87641; 93005; G0378; J1815; J1956; J2270; J2405; J3370; J3490; J7030; Q9967

== ENCOUNTER 2018-11-05 15:08 | Observation (INO) | payer MEDICAID ==
[~2018-11-05] VITALS: Ht 152.4 cm; Wt 78.8 kg
[2018-11-05 16:18] LABS: BASOPHILS % (AUTO) 0.4 % (0.0-5.0); HEMATOCRIT 27.3 % (36-48); LYMPHOCYTES % (AUTO) 12.4 % (21.0-51.0); MEAN CORPUSCULAR HEMOGLOBIN 30.3 pg (27.0-33.0); MEAN CORPUSCULAR VOLUME 88.9 fL (79-99); MONOCYTES % (AUTO) 15.5 % (3.0-13.0); NEUTROPHILS % (AUTO) 68.7 % (40.0-77.0); NUCLEATED RED BLOOD CELLS 0.1 % (0.0-0.19); PLATELET COUNT (AUTO) 58 K/uL (130-400); RED BLOOD CELL COUNT(AUTO) 3.07 MIL/uL (4.00-5.50); WHITE BLOOD COUNT (AUTO) 2.4 K/uL (4.8-10.8)
[2018-11-05 16:27] LABS: POTASSIUM 4.5 mmol/L (3.5-5.1)
[2018-11-05 16:35] LABS: ALBUMIN 1.9 g/dL (3.5-5.0); BILIRUBIN,TOTAL 1.2 mg/dL (0.2-1.0); TOTAL PROTEIN, SERUM 5.7 g/dL (6.0-8.3)
[2018-11-05 16:47] LABS: INR 1.1 (0.85-1.15); PARTIAL THROMBOPLASTIN TIME 28.8 SEC (26.3-35.5); PROTHROMBIN TIME 11.5 SEC (9.6-11.6)
[2018-11-05] MEDS ORDERED: INSULIN HUMULIN R 100 UNIT/ML 3ML ONE (17:03)
[2018-11-05 17:22] LABS: EOSINOPHILS % (MANUAL) 8 % (1-6); LYMPHOCYTES % (MANUAL) 13 % (22-44); MAN.DIFF COMMENT-IMPRESSION MANUAL DIFFERENTIAL; MONOCYTES % (MANUAL) 9 % (2-9); SEGMENTED NEUTROPHILS % 70 % (40-70)
[2018-11-05] MEDS ORDERED: ONDANSETRON HCL 4 MG/2 ML VIAL ONE (18:02)
[2018-11-05] MEDS ORDERED: MORPHINE SULFATE 4 MG/1ML SYG ONE (18:03)
[2018-11-05] MEDS ORDERED: ALBUTEROL SULFATE 0.083% 2.5 MG/3 ML INH IH PRN (21:15)
[2018-11-05] MEDS ORDERED: ACETAMINOPHEN 325 MG TAB PO PRN ×2 (21:15→21:45)
[2018-11-05] MEDS ORDERED: ONDANSETRON HCL 4 MG/2 ML VIAL IV PRN (21:15)
[2018-11-05 23:45] VITALS: BP 164/85
[2018-11-06] VITALS (12 sets, daily range): BP systolic 124–173; BP diastolic 63–88
[2018-11-06] MEDS ORDERED: LORA1TAB3 PO (01:01)
[2018-11-06] MEDS ORDERED: DEXTROSE 50%-WATER 50 ML DISP.SYRIN IV PRN (01:15)
[2018-11-06] MEDS ORDERED: GLUCAGON 1MG KIT 1 MG ML IM PRN (01:15)
[2018-11-06] MEDS: MORPHINE SULFATE 4 MG/1ML SYG IV PRN ×3 (07:07→21:25)
[2018-11-06] MEDS: INSULIN HUMULIN R 100 UNIT/ML 3ML SQ SCH ×4 (07:12→21:18)
[2018-11-06] MEDS ORDERED: ENOXAPARIN SODIUM 30 MG/0.3 ML SQ SCH (09:00)
[2018-11-06] MEDS ORDERED: PHARMACY COMMUNICATION MISC SCH (09:00)
[2018-11-06] MEDS: FUROSEMIDE 10 MG/ML 4ML VIAL IVP SCH ×2 (10:28→21:16)
[2018-11-06] MEDS: FAMOTIDINE 20MG TAB 20 MG TAB PO SCH ×2 (10:28→21:16)
[2018-11-06] MEDS ORDERED: LIDOCAINE HCL 1% 20 ML VIAL ONE (10:54)
[2018-11-06] MEDS ORDERED: ALBUMIN (HUMAN) 25% 200 ML IV ONE (12:15)
[2018-11-06] MEDS ORDERED: HYDROCODONE/ACETAMINOPHEN 5/325 MG TAB PO PRN (13:15)
[2018-11-06] MEDS: INSULIN GLARGINE 100 UNITS/ML 10 ML VIAL SQ SCH (21:17)
[2018-11-07] VITALS: BP 117/58
[2018-11-07 04:00] VITALS: BP 110/53
[2018-11-07 05:28] LABS: HEMATOCRIT 27.4 % (36-48); MEAN CORPUSCULAR HGB CONC 34.1 g/dL (32.0-36.0); MEAN CORPUSCULAR VOLUME 88.1 fL (79-99); PLATELET COUNT (AUTO) 62 K/uL (130-400); RED BLOOD CELL COUNT(AUTO) 3.11 MIL/uL (4.00-5.50); RED CELL DISTRIBUTION WIDTH 15.2 % (11.0-15.5); WHITE BLOOD COUNT (AUTO) 2.2 K/uL (4.8-10.8)
[2018-11-07 05:44] LABS: CREATININE 0.9 mg/dL (0.5-1.5); POTASSIUM 3.8 mmol/L (3.5-5.1)
[2018-11-07] MEDS: MORPHINE SULFATE 4 MG/1ML SYG IV PRN (05:52)
[2018-11-07] MEDS: INSULIN HUMULIN R 100 UNIT/ML 3ML SQ SCH ×2 (06:13→12:04)
[2018-11-07] MEDS: INSULIN GLARGINE 100 UNITS/ML 10 ML VIAL SQ SCH (06:33)
[2018-11-07 07:30] VITALS: BP 119/55
[2018-11-07] MEDS: FAMOTIDINE 20MG TAB 20 MG TAB PO SCH (09:06)
[2018-11-07] MEDS: FUROSEMIDE 10 MG/ML 4ML VIAL IVP SCH (09:06)
[2018-11-07 11:00] VITALS: BP 141/66
[2018-11-07] MEDS ORDERED: TRAMADOL HCL 50 MG TABLET PO STA (13:28)
== END 2018-11-07 16:10 | disposition home or self-care (01) ==
LOC: EDH 15:08 → EDHIP 15:09 → 3DH 23:12
PROVIDERS: ADMIT Internal Medicine; ATTEND Internal Medicine
DX: R18.8 Other ascites (principal); K74.60 Unspecified cirrhosis of liver; E11.9 Type 2 diabetes mellitus without complications; I10 Essential (primary) hypertension; E78.5 Hyperlipidemia, unspecified; E66.9 Obesity, unspecified; Z79.84 Long term (current) use of oral hypoglycemic drugs; Z82.0 Family history of epilepsy and other diseases of the nervous system; Z82.49 Family history of ischemic heart disease and other diseases of the circulatory system; Z90.710 Acquired absence of both cervix and uterus; Z90.49 Acquired absence of other specified parts of digestive tract; Z88.0 Allergy status to penicillin; Z88.8 Allergy status to other drugs, medicaments and biological substances
CPT/HCPCS: 36415 ×3; 49083; 80048; 80053; 82140 ×2; 82550; 82948 ×6; 84484; 85025; 85027; 85610; 85730; 93005; 94664; 96365; 96366; 96372 ×3; 96375; 96376 ×2; 99284; A4215; G0378 ×49; J1815 ×6; J1940 ×3; J2270 ×5; J2405; P9046

== ENCOUNTER 2018-12-10 18:02 | Emergency (ER) | payer MEDICAID, OTHER ==
[~2018-12-10 18:02] MED LIST changes: +LORA1TAB3 PO
[2018-12-10 19:04] LABS: BASOPHILS % (AUTO) 0.5 % (0.0-5.0); EOSINOPHILS % (AUTO) 2.7 % (0.0-8.0); HEMATOCRIT 27.9 % (36-48); LYMPHOCYTES % (AUTO) 12.6 % (21.0-51.0); MEAN CORPUSCULAR HEMOGLOBIN 31.1 pg (27.0-33.0); MEAN CORPUSCULAR HGB CONC 33.9 g/dL (32.0-36.0); MEAN CORPUSCULAR VOLUME 91.8 fL (79-99); MONOCYTES % (AUTO) 15.6 % (3.0-13.0); NEUTROPHILS % (AUTO) 68.6 % (40.0-77.0); PLATELET COUNT (AUTO) 71 K/uL (130-400); RED BLOOD CELL COUNT(AUTO) 3.04 MIL/uL (4.00-5.50); RED CELL DISTRIBUTION WIDTH 17.5 % (11.0-15.5)
[2018-12-10 19:29] LABS: BILIRUBIN,TOTAL 1.2 mg/dL (0.2-1.0); TOTAL PROTEIN, SERUM 6.3 g/dL (6.0-8.3)
[2018-12-10 19:33] LABS: INR 1.05 (0.85-1.15); PARTIAL THROMBOPLASTIN TIME 28.9 SEC (26.3-35.5)
[2018-12-10 19:37] LABS: B-TYPE NATRIURETIC PEPTIDE 80 pg/mL (0-100)
[2018-12-10 20:01] LABS: BAND NEUTROPHILS % (MANUAL) 2 % (0-2); EOSINOPHILS % (MANUAL) 2 % (1-6); LYMPHOCYTES % (MANUAL) 14 % (22-44); MAN.DIFF COMMENT-IMPRESSION MANUAL DIFFERENTIAL; MONOCYTES % (MANUAL) 6 % (2-9); SEGMENTED NEUTROPHILS % 76 % (40-70)
[2018-12-10 20:03] LABS: PLATELET MORPHOLOGY COMMENT DECREASED
[2018-12-10] MEDS ORDERED: INSULIN HUMULIN R 100 UNIT/ML 3ML ONE (20:03)
== END 2018-12-11 01:03 | disposition home or self-care (01) ==
LOC: EDH 18:02
DX: E11.65 Type 2 diabetes mellitus with hyperglycemia (principal); K74.69 Other cirrhosis of liver; R18.8 Other ascites; R91.1 Solitary pulmonary nodule; Z88.6 Allergy status to analgesic agent; Z88.0 Allergy status to penicillin; I10 Essential (primary) hypertension; Z90.710 Acquired absence of both cervix and uterus; Z90.49 Acquired absence of other specified parts of digestive tract
CPT/HCPCS: 36415; 71045; 74176; 80053; 82140; 82550; 83874; 83880; 84484; 85025; 85610; 85730; 93005; 96374; 99284; J1815

== ENCOUNTER 2018-12-29 11:13 | Emergency (ER) | payer MEDICAID ==
[2018-12-29 12:43] LABS: BASOPHILS % (AUTO) 0.4 % (0.0-5.0); EOSINOPHILS % (AUTO) 2.6 % (0.0-8.0); HEMATOCRIT 26.4 % (36-48); LYMPHOCYTES % (AUTO) 11.3 % (21.0-51.0); MEAN CORPUSCULAR HGB CONC 34.7 g/dL (32.0-36.0); MONOCYTES % (AUTO) 13.2 % (3.0-13.0); NEUTROPHILS % (AUTO) 72.5 % (40.0-77.0); PLATELET COUNT (AUTO) 65 K/uL (130-400); RED BLOOD CELL COUNT(AUTO) 2.87 MIL/uL (4.00-5.50); WHITE BLOOD COUNT (AUTO) 3.1 K/uL (4.8-10.8)
[2018-12-29 12:54] LABS: AMYLASE 41 U/L (25-115); CREATINE KINASE, TOTAL 73 U/L (21-232); LIPASE 445 U/L (114-286)
[2018-12-29 13:02] LABS: INR 1.02 (0.85-1.15); PARTIAL THROMBOPLASTIN TIME 27.3 SEC (26.3-35.5); PROTHROMBIN TIME 10.7 SEC (9.6-11.6)
[2018-12-29 13:47] LABS: APPEARANCE,URINE Cloudy (CLEAR); BILIRUBIN,URINE Negative (NEGATIVE); COLOR,URINE Yellow (YELLOW); GLUCOSE, URINE (UA) >=1000 mg/dL (NEGATIVE); KETONES,URINE Negative (NEGATIVE); LEUKOCYTE ESTERASE ,URINE Small (NEGATIVE); NITRATE,URINE Negative (NEGATIVE); OCCULT BLOOD,URINE Large (NEGATIVE); PROTEIN,URINE POS 2+ (NEGATIVE); UROBILINOGEN,URINE 0.2 mg/dL (0.2-1.0)
[2018-12-29 13:55] LABS: BACTERIA,URINE Rare /HPF (None Seen); SQUAMOUS EPITHELIAL CELL,UR Few /HPF (0-2); YEAST,URINE BUDDING Few /HPF (None Seen)
[2018-12-29] MEDS ORDERED: CEPHALEXIN 500 MG CAPSULE ONE (14:45)
== END 2018-12-29 15:55 | disposition home or self-care (01) ==
LOC: EDH 11:13
DX: K91.840 Postprocedural hemorrhage of a digestive system organ or structure following a digestive system procedure (principal); K74.69 Other cirrhosis of liver; N39.0 Urinary tract infection, site not specified; R18.8 Other ascites; E11.9 Type 2 diabetes mellitus without complications; E78.5 Hyperlipidemia, unspecified; Z90.710 Acquired absence of both cervix and uterus; Z90.49 Acquired absence of other specified parts of digestive tract; Z88.5 Allergy status to narcotic agent; Z88.6 Allergy status to analgesic agent; Z88.0 Allergy status to penicillin; Z87.891 Personal history of nicotine dependence
CPT/HCPCS: 36415; 76705; 81001; 82150; 82550; 83690; 84484; 85025; 85610; 85730; 87088; 93005

== ENCOUNTER 2019-02-04 18:30 | Emergency (ER) | payer MEDICAID | END 2019-02-04 19:37 | disposition home or self-care (01) | LOC: EDH 18:30 | DX: K74.60 Unspecified cirrhosis of liver (principal); E11.9 Type 2 diabetes mellitus without complications; I10 Essential (primary) hypertension; E78.5 Hyperlipidemia, unspecified; Z88.0 Allergy status to penicillin; Z88.6 Allergy status to analgesic agent; Z90.49 Acquired absence of other specified parts of digestive tract; Z90.710 Acquired absence of both cervix and uterus; Z87.891 Personal history of nicotine dependence | CPT/HCPCS: 99281 ==

== ENCOUNTER 2019-04-25 20:58 | Emergency (ER) | payer MEDICAID ==
[2019-04-25 21:19] LABS: BASOPHILS % (AUTO) 0.6 % (0.0-5.0); EOSINOPHILS % (AUTO) 3.1 % (0.0-8.0); HEMATOCRIT 24.2 % (36-48); LYMPHOCYTES % (AUTO) 12.7 % (21.0-51.0); MEAN CORPUSCULAR HEMOGLOBIN 32.2 pg (27.0-33.0); MEAN CORPUSCULAR HGB CONC 34.5 g/dL (32.0-36.0); MEAN CORPUSCULAR VOLUME 93.3 fL (79-99); MONOCYTES % (AUTO) 14.4 % (3.0-13.0); NEUTROPHILS % (AUTO) 69.2 % (40.0-77.0); NUCLEATED RED BLOOD CELLS 0.1 % (0.0-0.19); PLATELET COUNT (AUTO) 85 K/uL (130-400); RED BLOOD CELL COUNT(AUTO) 2.59 MIL/uL (4.00-5.50); RED CELL DISTRIBUTION WIDTH 16.5 % (11.0-15.5); WHITE BLOOD COUNT (AUTO) 3.2 K/uL (4.8-10.8)
[2019-04-25 21:30] LABS: INR 1.05 (0.85-1.15); PARTIAL THROMBOPLASTIN TIME 27.5 SEC (26.3-35.5)
[2019-04-25 21:38] LABS: ALBUMIN 1.7 g/dL (3.5-5.0); BILIRUBIN,TOTAL 1.8 mg/dL (0.2-1.0); CREATININE 1.4 mg/dL (0.5-1.5); POTASSIUM 4.3 mmol/L (3.5-5.1); TOTAL PROTEIN, SERUM 5.4 g/dL (6.0-8.3)
[2019-04-25 21:45] LABS: PLATELET MORPHOLOGY COMMENT DECREASED
[2019-04-25] MEDS ORDERED: INSULIN HUMULIN R 100 UNIT/ML 3ML ONE (21:49)
[2019-04-25 22:13] LABS: APPEARANCE,URINE Clear (CLEAR); BILIRUBIN,URINE Negative (NEGATIVE); COLOR,URINE Yellow (YELLOW); GLUCOSE, URINE (UA) >=1000 mg/dL (NEGATIVE); KETONES,URINE Negative (NEGATIVE); LEUKOCYTE ESTERASE ,URINE Moderate (NEGATIVE); NITRATE,URINE Negative (NEGATIVE); OCCULT BLOOD,URINE Moderate (NEGATIVE); PROTEIN,URINE Negative (NEGATIVE)
[2019-04-25 22:36] LABS: BACTERIA,URINE Few /HPF (None Seen); YEAST,URINE BUDDING Rare /HPF (None Seen)
[2019-04-26] MEDS ORDERED: CEPHALEXIN 500 MG CAPSULE ONE (00:32)
== END 2019-04-26 00:48 | disposition home or self-care (01) ==
LOC: EDH 20:58
DX: N39.0 Urinary tract infection, site not specified (principal); E11.65 Type 2 diabetes mellitus with hyperglycemia; I10 Essential (primary) hypertension; K74.69 Other cirrhosis of liver; E78.5 Hyperlipidemia, unspecified; Z88.0 Allergy status to penicillin; Z88.6 Allergy status to analgesic agent; Z88.5 Allergy status to narcotic agent
CPT/HCPCS: 36415; 71045; 76770; 80053; 81001; 82150; 82550; 83690; 84484; 85025; 85610; 85730; 87088; 93005; 96374; 99285; J1815

== ENCOUNTER 2019-05-26 20:48 | Inpatient (IN) | payer MEDICAID ==
[~2019-05-26] VITALS: Ht 154.9 cm; Wt 72.7 kg
[~2019-05-26 20:48] MED LIST changes: -LORA1TAB3 PO
[2019-05-26 21:21] LABS: BASOPHILS % (AUTO) 0.5 % (0.0-5.0); EOSINOPHILS % (AUTO) 1.7 % (0.0-8.0); HEMATOCRIT 27.2 % (36-48); LYMPHOCYTES % (AUTO) 11.4 % (21.0-51.0); MEAN CORPUSCULAR HGB CONC 35.9 g/dL (32.0-36.0); MEAN CORPUSCULAR VOLUME 94.7 fL (79-99); MONOCYTES % (AUTO) 12.4 % (3.0-13.0); PLATELET COUNT (AUTO) 93 K/uL (130-400); RED BLOOD CELL COUNT(AUTO) 2.87 MIL/uL (4.00-5.50); RED CELL DISTRIBUTION WIDTH 16.2 % (11.0-15.5); WHITE BLOOD COUNT (AUTO) 4.6 K/uL (4.8-10.8)
[2019-05-26 21:34] LABS: INR 1.06 (0.85-1.15); PARTIAL THROMBOPLASTIN TIME 28.2 SEC (26.3-35.5); PROTHROMBIN TIME 11.1 SEC (9.6-11.6)
[2019-05-26 21:39] LABS: ALBUMIN 1.8 g/dL (3.5-5.0); BILIRUBIN,TOTAL 2.6 mg/dL (0.2-1.0); CREATININE 2.3 mg/dL (0.5-1.5); POTASSIUM 5.2 mmol/L (3.5-5.1); TOTAL PROTEIN, SERUM 5.7 g/dL (6.0-8.3)
[2019-05-26] MEDS ORDERED: INSULIN HUMULIN R 100 UNIT/ML 3ML ONE (21:47)
[2019-05-26] MEDS ORDERED: LACTULOSE 20 GM/30 ML UDCUP ONE (22:48)
[2019-05-27] VITALS (11 sets, daily range): BP systolic 110–143; BP diastolic 58–74
[2019-05-27] MEDS ORDERED: DEXTROSE 50%-WATER 50 ML DISP.SYRIN IV PRN (00:15)
[2019-05-27] MEDS ORDERED: LACTULOSE 20 GM/30 ML UDCUP PO ONE (00:15)
[2019-05-27] MEDS ORDERED: GLUCAGON 1MG KIT 1 MG ML IM PRN (00:15)
--- NOTE | 2019-05-27 00:40 | NUR ---
ADMISSION. PT ADMITTED INTO ROOM 406 FROM ER, TRANSFERRED VIA WHEEL CHAIR. PT AWAKE, ALERT AND RESPONSIVE, VERY UNSTEADY ON HER FEET, C/O FEELING VERY WEAK. PT ORIENTED TO ROOM, CALL TREVINO WITHIN REACH, BED IN LOWEST POSITION. Addendum: 05/27/19 at 0110 by LINDA FIGUEROA RN Amended: Links added.
[2019-05-27 05:12] LABS: HEMATOCRIT 24.7 % (36-48); MEAN CORPUSCULAR HEMOGLOBIN 33.4 pg (27.0-33.0); MEAN CORPUSCULAR HGB CONC 35.4 g/dL (32.0-36.0); MEAN CORPUSCULAR VOLUME 94.3 fL (79-99); PLATELET COUNT (AUTO) 77 K/uL (130-400); RED BLOOD CELL COUNT(AUTO) 2.62 MIL/uL (4.00-5.50); RED CELL DISTRIBUTION WIDTH 16.2 % (11.0-15.5); WHITE BLOOD COUNT (AUTO) 4.3 K/uL (4.8-10.8)
[2019-05-27 05:22] LABS: CREATININE 2.2 mg/dL (0.5-1.5); MAGNESIUM 2.2 mg/dL (1.80-2.40); POTASSIUM 5.4 mmol/L (3.5-5.1)
[2019-05-27] MEDS ORDERED: FUROSEMIDE 10 MG/ML 4ML VIAL ONE (06:22)
[2019-05-27] MEDS: INSULIN R PO SS1 SQ SCH ×4 (06:35→21:48)
[2019-05-27] MEDS: INSULIN GLARGINE 100 UNITS/ML 10 ML VIAL SQ SCH ×2 (06:36→16:32)
[2019-05-27] MEDS ORDERED: FUROSEMIDE 10 MG/ML 4ML VIAL IV SCH (07:00)
[2019-05-27] MEDS: PANTOPRAZOLE SODIUM 40 MG TABLET.DR PO SCH (07:30)
--- NOTE | 2019-05-27 08:14 | NUR ---
MCKENZIE RINCON MD REGARDING CONSULT Addendum: 05/27/19 at 0831 by ADRIEN WILSON RN RN AWARE OF CONSULT
[2019-05-27] MEDS: LACTULOSE 20 GM/30 ML UDCUP PO SCH ×4 (09:00→20:55)
--- NOTE | 2019-05-27 14:40 | NUR ---
U/S GD PARACENTESIS PROCEDURE PERFORMED BY DR HUGHES. PUNCTURE SITE RIGHT LOWER QUADRANT AND PATIENT TOLERATED PROCEDURE WELL. TOTAL REMOVED 1.0 LITERS OF CLOUDY YELLOW. SPECIMEN SENT TO LAB. END OF PROCEDURE AT 1450. CATHETER REMOVED AND DRESSING APPLIED. NO BLEEDING NOTED. CALLED REPORT TO [facility]. TRANSPORTED TO ROOM 411 VIA W/C, STABLE, AAO X3 WITH NO C/O PAIN.
[2019-05-27] MEDS: PHARMACY COMMUNICATION MISC SCH ×2 (14:45→20:45)
[2019-05-27 16:01] LABS: APPEARANCE BODY FLUID CLOUDY (CLEAR); COLOR,BODY FLUID YELLOW (LT YELLOW); SPECIMENTYPE,BODY FLUID ASCITES; TOTAL VOLUME,BODY FLUID 1000 mL
[2019-05-27 16:02] LABS: BODY FLUID RBC 212 /cu. mm.; BODY FLUID WBC 30 /cu. mm.
[2019-05-27 16:07] LABS: BF LYMPHOCYTE 17 %; BF MESOTHELIAL 71 %; BF MONOCYTE 12 %
[2019-05-27] MEDS: ALBUMIN (HUMAN) 25% 50 ML IV SCH (16:13)
--- NOTE | 2019-05-27 17:15 | NUR ---
cm note met with pt discussed dc plans. Pt needs assist w/ADL's, lives at home alone. Pt has a provider, goes to [facility] daily, uses rollator walker and has a shower chair at home.Pt states has had falls at home and keeps having to be admitted to hospital,sister and provider assist with transportation and needs as necessary. discussed md orders for placement with pt, pt agreeable to go to [facility] for a month if necessary. choice letter/ [facility] obtained. for [facility] 1st choice and 2nd choice, [facility]. Addendum: 05/27/19 at 1726 by JADON RAMIREZ Amended: Links added.
[2019-05-28] VITALS: BP 123/67
[2019-05-28] MEDS: ALBUMIN (HUMAN) 25% 50 ML IV SCH ×4 (00:10→23:27)
[2019-05-28] MEDS ORDERED: ACETAMINOPHEN-CODEINE 300/30MG TAB PO PRN (00:30)
[2019-05-28] MEDS ORDERED: ACETAMINOPHEN-CODEINE 300/30MG TAB ONE (00:34)
[2019-05-28] MEDS: PHARMACY COMMUNICATION MISC SCH ×2 (02:45→20:38)
[2019-05-28 04:00] VITALS: BP 110/61
[2019-05-28 04:39] LABS: BASOPHILS % (AUTO) 0.5 % (0.0-5.0); EOSINOPHILS % (AUTO) 1.5 % (0.0-8.0); LYMPHOCYTES % (AUTO) 23.4 % (21.0-51.0); MEAN CORPUSCULAR HEMOGLOBIN 33.2 pg (27.0-33.0); MEAN CORPUSCULAR HGB CONC 35.6 g/dL (32.0-36.0); MEAN CORPUSCULAR VOLUME 93.3 fL (79-99); MONOCYTES % (AUTO) 15.1 % (3.0-13.0); NEUTROPHILS % (AUTO) 59.5 % (40.0-77.0); NUCLEATED RED BLOOD CELLS 0.1 % (0.0-0.19); PLATELET COUNT (AUTO) 55 K/uL (130-400); RED BLOOD CELL COUNT(AUTO) 2.23 MIL/uL (4.00-5.50); RED CELL DISTRIBUTION WIDTH 16.3 % (11.0-15.5); WHITE BLOOD COUNT (AUTO) 2.3 K/uL (4.8-10.8)
[2019-05-28 04:46] LABS: HEMATOCRIT 20.8 % (36-48)
[2019-05-28 04:54] LABS: PHOSPHORUS 4.2 mg/dL (2.5-4.9); THYROID STIMULATING HORMONE 0.63 uIU/mL (0.36-3.74); URIC ACID 7.4 mg/dL (2.6-7.2)
--- NOTE | 2019-05-28 06:10 | NUR ---
Dr. Erickson rounded: Seen and examined pt with the ff: orders 1. GI consult 2. Venofer 100 mg IV daily 3. Type and screen 4. CBC, BMP and Mg jaspal AM ( 05/29/19)
[2019-05-28] MEDS: PANTOPRAZOLE SODIUM 40 MG TABLET.DR PO SCH (06:43)
[2019-05-28] MEDS ORDERED: COMPOUND IV MISC 1 EACH IVSOLN MISC PRN (06:45)
[2019-05-28] MEDS: INSULIN R PO SS1 SQ SCH ×4 (06:46→20:40)
[2019-05-28] MEDS: INSULIN GLARGINE 100 UNITS/ML 10 ML VIAL SQ SCH ×2 (06:47→16:43)
[2019-05-28 07:11] LABS: EOSINOPHILS % (MANUAL) 3 % (1-6); LYMPHOCYTES % (MANUAL) 16 % (22-44); MAN.DIFF COMMENT-IMPRESSION MANUAL DIFFERENTIAL; MONOCYTES % (MANUAL) 14 % (2-9); SEGMENTED NEUTROPHILS % 67 % (40-70)
[2019-05-28 07:12] LABS: PLATELET MORPHOLOGY COMMENT DECREASED
[2019-05-28 07:53] VITALS: BP 96/53
[2019-05-28] MEDS: IRON SUCROSE COMPLEX 100 MG in SODIUM CHLORIDE 0.9% 50 ML IV SCH (09:25)
[2019-05-28] MEDS: LACTULOSE 20 GM/30 ML UDCUP PO SCH ×4 (09:25→20:38)
[2019-05-28] MEDS: FOLIC ACID/VITAMIN B COMP W-C 1 MG CAP/TAB PO SCH (09:25)
--- NOTE | 2019-05-28 10:32 | NUR ---
NTR Consult: Pt reports poor po intake r/t abd distention and feelings of weakness/fatigue. Pt w/ hx of dm,htn, paracentesis, hyperlipidemia. Pt s/p: paracentesis w/ 1.0 L removed 05/27/19. Pt w/ hx of diet/med noncompliance and stated she attends an adult day care mon-fri where she is provided a "normal" diet w/ no dietary restrictions. Pt does not follow a diet home per pt. diet: 75gm ccd, meds: noted. labs; na 135, bun 50, crea 2.0, gfr 27, uric acid 7.4, gluc 289, Ammonia 88 LBM: 05/27: liquid/loose. Renal fxn improving w/ renal fxn labs trending down. Ammonia trending down. Recommendations: 1. Cont c current diet. Monitor renal fxn and ammonia levels-if worsens recommend low pro diet. 2. Pt may benefit from diet education on limitation of simple sugars to assist w/ normalizing glucose. 3. RD f/u in 1-3 days. Addendum: 05/28/19 at [address] Amended: Links added.
[2019-05-28 10:51] VITALS: BP 117/59
--- NOTE | 2019-05-28 13:30 | NUR ---
CM Note: [facility] pending approval CM met with pt discussed MD [facility] for shelter placement pt noncompliant w/treatment outpatient, pt agreeable, PHILL signed for [facility]. Faxed order, clinicals, and pasrr. Spoke to Frankie w/GP, received order, clinicals, and pasrr, will come eval pt, and will run benefits. Pt pending approval. Primary nurse aware. CM to cont to follow up.
[2019-05-28] MEDS: MIDODRINE HCL 5 MG TABLET PO SCH ×2 (15:52→20:38)
[2019-05-28 16:30] VITALS: BP 120/67
[2019-05-28 19:30] VITALS: BP 131/71
--- NOTE | 2019-05-28 22:30 | NUR ---
Wilfredo CORTEZ rounded Visit,examined and talked to patient. No new orders.
[2019-05-29] VITALS (19 sets, daily range): BP systolic 82–138; BP diastolic 52–68
[2019-05-29] MEDS: PHARMACY COMMUNICATION MISC SCH ×4 (02:45→20:45)
[2019-05-29 05:54] LABS: BASOPHILS % (AUTO) 0.5 % (0.0-5.0); EOSINOPHILS % (AUTO) 2.6 % (0.0-8.0); HEMATOCRIT 22.8 % (36-48); LYMPHOCYTES % (AUTO) 17.4 % (21.0-51.0); MEAN CORPUSCULAR HGB CONC 34.7 g/dL (32.0-36.0); MEAN CORPUSCULAR VOLUME 95.1 fL (79-99); NEUTROPHILS % (AUTO) 61.5 % (40.0-77.0); PLATELET COUNT (AUTO) 65 K/uL (130-400); RED CELL DISTRIBUTION WIDTH 16.5 % (11.0-15.5); WHITE BLOOD COUNT (AUTO) 2.6 K/uL (4.8-10.8)
[2019-05-29 05:59] LABS: CREATININE 1.7 mg/dL (0.5-1.5); MAGNESIUM 2.2 mg/dL (1.80-2.40)
[2019-05-29 06:03] LABS: INR 1.11 (0.85-1.15); PROTHROMBIN TIME 11.6 SEC (9.6-11.6)
--- NOTE | 2019-05-29 06:12 | NUR ---
DORIS CORTEZ rounds: Came in to visit patient. Patient was in the restroom at this time, thus Dr. Erickson just ask the journalists and other writers for blood results. He ordered to let the CM call him for discharge planning.
[2019-05-29] MEDS: INSULIN GLARGINE 100 UNITS/ML 10 ML VIAL SQ SCH ×2 (06:43→17:37)
[2019-05-29] MEDS: INSULIN R PO SS1 SQ SCH ×4 (06:43→20:55)
[2019-05-29 07:23] LABS: BASOPHILS % (MANUAL) 1 % (0-2); EOSINOPHILS % (MANUAL) 3 % (1-6); LYMPHOCYTES % (MANUAL) 16 % (22-44); MAN.DIFF COMMENT-IMPRESSION MANUAL DIFFERENTIAL; MONOCYTES % (MANUAL) 15 % (2-9); PLATELET MORPHOLOGY COMMENT DECREASED; SEGMENTED NEUTROPHILS % 65 % (40-70)
[2019-05-29] MEDS: PANTOPRAZOLE SODIUM 40 MG TABLET.DR PO SCH ×2 (07:30→17:38)
[2019-05-29 08:15] LABS: HEPATITIS A ANTIBODY IGM Negative (Negative); HEPATITIS B CORE IGM Negative (Negative); HEPATITIS Bs ANTIGEN SCREEN P Negative (Negative)
[2019-05-29] MEDS: MIDODRINE HCL 5 MG TABLET PO SCH ×3 (09:00→20:52)
[2019-05-29] MEDS: LACTULOSE 20 GM/30 ML UDCUP PO SCH ×4 (09:00→20:52)
[2019-05-29] MEDS: FOLIC ACID/VITAMIN B COMP W-C 1 MG CAP/TAB PO SCH (09:00)
[2019-05-29] MEDS: ALBUMIN (HUMAN) 25% 50 ML IV SCH (09:08)
[2019-05-29] MEDS: IRON SUCROSE COMPLEX 100 MG in SODIUM CHLORIDE 0.9% 50 ML IV SCH (09:11)
--- NOTE | 2019-05-29 10:44 | NUR ---
JAY Note: [facility] pending approval Spoke to Frankie eduardo/[facility], received updated clinicals. pt still pending approval at this time. Primary nurse aware. CM to cont to follow up.
--- NOTE | 2019-05-29 13:00 | NUR ---
PATIENT WAS TAKEN TO GI LAB VIA BED.
--- NOTE | 2019-05-29 13:24 | NUR ---
CM Note: Spoke to Dr Erickson updated w/POC. pt awaiting approval for [facility].
--- NOTE | 2019-05-29 15:45 | NUR ---
RETURNED FROM GI LAB ALERT AND AWAKE WITH NO ACUTE RESPIRATORY DISTRESS ON ROOM AIR, VOICED ACID DISCOMFORT. GI MD RECOMMENDED PROTONIX FOR 8 WEEKS ALREADY AND THAT WAS EXPLAINED TO THE PATIENT. VITAL SIGNS ARE STABLE.
--- NOTE | 2019-05-29 16:08 | NUR ---
CM Note: [facility] denied CM spoke to Jane eduardo/[facility]. Pt has denial, unable to meet pt needs. will qualify for shot term only if pt has IV abx. Primary nurse aware. CM spoke to Dr Erickson made aware of denial. Per MD plan dc to home tomorrow once cleared by GI. Primary nurse aware. CM to cont to follow up.
--- NOTE | 2019-05-29 17:45 | NUR ---
PATIENT FOUND EATING [employer]BAD[place] FRIES DESPITE THE KNOWLEDGE OF HER CURRENT DIET. ALTHOUGH I INSISTED ON THE DIET SHE STILL ATE IT.
--- NOTE | 2019-05-29 17:54 | NUR ---
IN THE PRESENCE OF THE STUDENT NURSE PATIENT CONTINUE TO EAT THE FOOD BROUGHT TO HER BY HER FAMILY. REFUSAL FORM OBTAINED.
[2019-05-30] VITALS: BP 138/78
[2019-05-30 04:00] VITALS: BP 124/64
[2019-05-30] MEDS: PANTOPRAZOLE SODIUM 40 MG TABLET.DR PO SCH ×2 (06:22→16:30)
[2019-05-30] MEDS: ONDANSETRON HCL 4 MG/2 ML VIAL IVP PRN ×2 (06:22→12:42)
[2019-05-30] MEDS: INSULIN GLARGINE 100 UNITS/ML 10 ML VIAL SQ SCH ×2 (06:23→16:30)
[2019-05-30] MEDS: INSULIN R PO SS1 SQ SCH ×3 (06:24→16:30)
[2019-05-30 07:30] VITALS: BP 122/58
[2019-05-30] MEDS: FOLIC ACID/VITAMIN B COMP W-C 1 MG CAP/TAB PO SCH (09:49)
[2019-05-30] MEDS: MIDODRINE HCL 5 MG TABLET PO SCH (09:49)
[2019-05-30] MEDS: LACTULOSE 20 GM/30 ML UDCUP PO SCH ×3 (09:49→17:00)
[2019-05-30] MEDS: IRON SUCROSE COMPLEX 100 MG in SODIUM CHLORIDE 0.9% 50 ML IV SCH (10:02)
[2019-05-30 11:00] VITALS: BP 151/71
[2019-05-30 16:00] VITALS: BP 133/61
--- NOTE | 2019-05-30 16:59 | NUR ---
DR. GEORGE PAGED
--- NOTE | 2019-05-30 17:02 | NUR ---
DR. GEORGE AWARE PT IS IN PAIN, BUT NOT DUE YET FOR PAIN MEDICATION AND WANTS SOMETHING STRONGER DR. GEORGE AWARE PT IS SAYING SHE WANTS TO LIVE AGAINST MEDICAL ADVICE DR. GEORGE STATES HE CANNOT GIVE HER ANYTHING ELSE , SINCE LIVER AND KIDNEY FAILURE AND CAN GO AMA, IF SHE WANTS TO
--- NOTE | 2019-05-30 17:17 | NUR ---
PT SIGNED AMA, KNOWING RISKS INVOLVED , POSSIBLE PT CONSENTED IN LEAVING AGAINST MEDICAL ADVICE, AND CALLED HER AUNT TO PICK HER UP CHARGE NURSE AWARE
[2019-05-30] MEDS ORDERED: MIDODRINE HCL 5 MG TABLET PO SCH (21:00)
== END 2019-05-30 17:50 | disposition left against medical advice (07) | DRG 254 ==
LOC: EDH 20:48 → EDHIP 20:49 → UNDOADMIN 22:48 → 4BH 23:40
PROVIDERS: ADMIT Family Medicine; ATTEND Family Medicine
PROC: 0W9G3ZZ Drainage of Peritoneal Cavity, Percutaneous Approach (ICD-10-PCS; principal; 2019-05-27)
PROC: 0D568ZZ Destruction of Stomach, Via Natural or Artificial Opening Endoscopic (ICD-10-PCS; 2019-05-29)
DX: K31.819 Angiodysplasia of stomach and duodenum without bleeding (principal); K76.7 Hepatorenal syndrome; D61.818 Other pancytopenia; N17.9 Acute kidney failure, unspecified; E11.21 Type 2 diabetes mellitus with diabetic nephropathy; I95.9 Hypotension, unspecified; E87.1 Hypo-osmolality and hyponatremia; I85.10 Secondary esophageal varices without bleeding; E11.65 Type 2 diabetes mellitus with hyperglycemia; K72.90 Hepatic failure, unspecified without coma; E11.22 Type 2 diabetes mellitus with diabetic chronic kidney disease; K74.60 Unspecified cirrhosis of liver; R18.8 Other ascites; Z53.21 Procedure and treatment not carried out due to patient leaving prior to being seen by health care provider; B19.20 Unspecified viral hepatitis C without hepatic coma; E78.5 Hyperlipidemia, unspecified; E87.5 Hyperkalemia; I12.9 Hypertensive chronic kidney disease with stage 1 through stage 4 chronic kidney disease, or unspecified chronic kidney disease; I25.10 Atherosclerotic heart disease of native coronary artery without angina pectoris; K21.0 Gastro-esophageal reflux disease with esophagitis; K76.6 Portal hypertension; K31.89 Other diseases of stomach and duodenum; I25.2 Old myocardial infarction; L80 Vitiligo; N18.9 Chronic kidney disease, unspecified; Z79.4 Long term (current) use of insulin; Z90.710 Acquired absence of both cervix and uterus; Z91.11 Patient's noncompliance with dietary regimen; Z91.14 Patient's other noncompliance with medication regimen; Z86.14 Personal history of Methicillin resistant Staphylococcus aureus infection; Z88.6 Allergy status to analgesic agent; Z88.0 Allergy status to penicillin; Z88.8 Allergy status to other drugs, medicaments and biological substances
CPT/HCPCS: 36415; 43270; 49083; 71045; 76700; 80048; 80053; 80074; 82140; 82150; 82550; 82948; 83690; 83735; 84100; 84443; 84484; 84550; 85025; 85027; 85610; 85730; 86850; 86900; 86901; 87071; 87205; 89051; 93005; G0378; J1756; J1815; J1940; J2405; P9047